=== PATIENT | female | born 1950 | race Caucasian/White ===

== ENCOUNTER 2017-04-10 14:26 | Emergency (ER) | payer MEDICARE ==
[2016-02-13 10:14] VITALS: BMI 27.4
[~2017-04-10 14:26] MED LIST: AMBIEN10 MG PO; ASPIRIN EC81 M1 PO; COREG 3.1253.125 MG PO; GLIMEPIRIDE1 MG PO; LASIX40 MG PO; LEXAPRO5 MG PO; LISINOPRIL10 MG PO; ZOCOR20 MG PO
[2017-04-10 15:54] LABS: BASOPHILS 0.5 % (0-2); EOSINOPHILS 2.6 % (0-7); HEMATOCRIT 39.4 % (36.0-48.0); HEMOGLOBIN 11.5 g/dL (12-16); IMMATURE GRANULOCYTES 0.2 % (0-5); LYMPHOCYTES 41.7 % (15-50); MCH 27.1 pg (26.0-34.0); MCHC 29.2 g/dL (31.0-37.0); MCV 92.7 fL (80.0-100.0); MEAN PLATELET VOLUME 10.3 fL (7.4-10.4); MONOCYTES 7.7 % (2-11); NEUTROPHILS 47.3 % (40-80); RBC 4.25 10x6/uL (4.00-5.40); RDW 16.6 % (11.5-14.5)
[2017-04-10 16:10] LABS: PLATELET COUNT 323 10x3/uL (130-400)
[2017-04-10 16:53] LABS: ALBUMIN 3.1 g/dL (3.4-5.0); ALKALINE PHOSPHATASE 64 U/L (46-116); ALT (SGPT) 12 U/L (10-68); BILIRUBIN - TOTAL 0.39 mg/dL (0.2-1.3); CALC OSMOLALITY 285 mosm/kg (275-300); CALCIUM 9.1 mg/dL (8.5-10.1); CHLORIDE - SERUM 101 mmol/L (98-107); CREATININE - SERUM 2.7 mg/dL (0.6-1.3); GLUCOSE 267 mg/dL (74-106); POTASSIUM - SERUM 3.4 mmol/L (3.5-5.1); PROTEIN - SERUM 7.1 g/dL (6.4-8.2); SODIUM 135 mmol/L (136-145); UREA NITROGEN 31 mg/dL (7-18); eGFR NON AFRICAN AMERICAN 18 mL/min (90-120)
[2017-04-10 17:04] LABS: CHOL - HDL RATIO 3.8 ratio (2.3-4.1); CHOLESTEROL, TOTAL 188 mg/dL (0-200); CKMB 1.5 U/L (0.0-3.6); CREATINE KINASE 33 UL (21-215); HDL CHOLESTEROL 50 mg/dL (32-96); LDL CHOLESTEROL 94 mg/dL (0-100); LDL-HDL RATIO 1.9 ratio (1.5-3.5); TRIGLYCERIDE 220 mg/dL (30-200); TROPONIN-I 0.056 ng/mL (0.000-0.060)
== END 2017-04-10 15:54 ==
LOC: D.ER 14:26
PROVIDERS: Emergency Medicine
DX: I21.29 ST elevation (STEMI) myocardial infarction involving other sites (principal); I45.10 Unspecified right bundle-branch block